=== PATIENT | male | born 1935 | race Caucasian/White ===

== ENCOUNTER 2016-10-20 08:05 | Day surgery (SDC) | payer MEDICARE ==
[2016-10-20 08:57] LABS: Basophils % (Auto) 1.1 % (0.0-1.8); Eosinophils % (Auto) 6.8 % (0.0-4.3); Hematocrit 41.8 % (30.3-42.9); Hemoglobin 13.7 gm/dl (10.1-14.3); Mean Corpuscular HGB Conc 33 % (30-34); Mean Corpuscular Hemoglobin 27 pg (28-32); Mean Corpuscular Volume 83 fl (79-97); Platelet Count 192 K/mm3 (140-440); Red Blood Count 5.02 M/mm3 (3.65-5.03); Red Cell Distribution Width 15.8 % (13.2-15.2); White Blood Count 5.8 K/mm3 (4.5-11.0)
[2016-10-20] MEDS ORDERED: ECOTRIN PO ONE (09:00)
[2016-10-20] MEDS ORDERED: NACL 0.9% 500 ML 500 ML IV SCH (09:00)
[2016-10-20 09:07] LABS: BUN/Creatinine Ratio 15.45; Calcium 9.2 mg/dL (8.4-10.2); INR 1.01 (0.87-1.13)
[2016-10-20] MEDS ORDERED: HEPARIN/NS 5000 UNIT/500ML(CATH LAB) 1,500 ML IR ONE (10:39)
[2016-10-20] MEDS ORDERED: SUBLIMAZE ONE (10:40)
[2016-10-20] MEDS ORDERED: HEPARIN 10,000 UNITS/10 ML ONE (10:40)
[2016-10-20] MEDS ORDERED: VERSED ONE (10:40)
[2016-10-20] MEDS ORDERED: XYLOCAINE 2% INFILTRATI ONE (10:40)
--- NOTE | 2016-10-20 11:37 | Discharge Summary ---
Short Stay Discharge Plan Activity: advance as tolerated Weight Bearing Status: Partial Weight Bearing Diet: low fat, low cholesterol, low salt Wound: keep clean and dry Special Instructions: no heavy lifting (3 days) Follow up with: WENDI SAAVEDRA MD [Staff Physician] - 7 Days
[2016-10-20] MEDS ORDERED: NACL 0.9% 500 ML 500 ML ONE (11:56)
[2016-10-20] MEDS ORDERED: NACL 0.9% 1000 ML 1,000 ML IV SCH (12:00)
--- NOTE | 2016-10-20 14:03 | Cardiac Catherization Report ---
REASON FOR PROCEDURE: Progressive aortic stenosis, right and left heart catheterization was recommended. PROCEDURES: 1. Right and left heart catheterization. 2. Coronary angiography. 3. Left ventricle angiography. PROCEDURE: The patient was prepped and draped in a sterile fashion after informed consent. The right femoral artery and vein were entered using the Seldinger technique. A 6-Palauan sheath in the artery and an 8-Palau[place] sheath in the vein. [place]-Heather catheterization was advanced to the pulmonary artery position. A #4 right Jose was advanced in the left ventricle. Cardiac output was measured using the thermodilution method. Simultaneous right and left heart filling pressures were measured. The [place]-Heather catheter was removed. Left ventricular angiography was performed with a hand injection via the right Jose catheter. The right Jose was then withdrawn across the aortic valve and transaortic pressures were recorded. Simultaneous left and right coronary angiography was then performed. The catheters were then removed, sheath removed and hemostasis achieved using manual compression. The patient was returned to the postprocedure unit in stable condition. There were no complications. FINDINGS: HEMODYNAMICS: The mean right atrial pressure was 6. Right ventricular pressure 35/8. Pulmonary artery pressure 30/15. Mean pulmonary artery wedge pressure was 12. Left ventricular end-diastolic pressure was 15. Cardiac output was 4.26 liters per minute by thermodilution. The left ventricular systolic pressure was 170, ascending aortic pressure was 129/52. On pullback across the aortic valve, there was a [id number] gradient of 43 mmHg. The mean gradient across the aortic valve was 34.5 mmHg. The calculated aortic valve area using the Gorlin equation was 0.82 square cm. CORONARY ANGIOGRAPHY: The left main coronary artery was free of significant disease. A stent was visible in the mid left anterior descending artery. The stented segment was widely patent, no significant in-stent restenosis. Otherwise, mild luminal irregularities were noted in the remainder of the LAD and diagonal branches. The circumflex artery contained a long, irregular 50-60% stenosis of its proximal segment. This was followed by diffuse mild atherosclerosis of the rest of the circumflex and obtuse marginals. The right coronary artery was dominant. This vessel contained a patent stent in its proximal to mid segment. Outside the stented segment, close to the acute margin there was a 50% stenosis. Otherwise, mild irregularities were noted in the rest of the right coronary system. There was normal left ventricular systolic function, ejection fraction 60%. CONCLUSIONS: 1. Normal right and left heart filling pressures, mild pulmonary hypertension. 2. At least [id number] aortic stenosis, with aortic valve area 0.82 square cm. 3. Multivessel coronary artery disease. 4. Patent mid left anterior descending artery stent. 5. Patent proximal right coronary artery stent. 6. Otherwise, moderate to moderately severe disease of the proximal circumflex and mid right coronary artery outside the stented segments. 7. Normal left ventricular systolic function, ejection fraction 60%. RECOMMENDATIONS: Based on clinical findings, the patient will be recommended for CT surgical evaluation and consultation. [facility]# [id number] DOMINICK/BROOKS
[2016-10-20 15:56] VITALS: BP 121/68
== END 2016-10-20 16:43 | disposition home or self-care (01) ==
LOC: EDSEX 08:05 → CATHLABREC 08:05
PROVIDERS: ATTEND Internal Medicine Cardiovascular Disease
DX: I25.10 Atherosclerotic heart disease of native coronary artery without angina pectoris (principal); I35.0 Nonrheumatic aortic (valve) stenosis; I10 Essential (primary) hypertension; E78.5 Hyperlipidemia, unspecified; E03.9 Hypothyroidism, unspecified; Z87.891 Personal history of nicotine dependence; Z86.73 Personal history of transient ischemic attack (TIA), and cerebral infarction without residual deficits; Z98.890 Other specified postprocedural states; Z95.5 Presence of coronary angioplasty implant and graft; Z79.82 Long term (current) use of aspirin; Z79.899 Other long term (current) drug therapy
CPT/HCPCS: 36415; 80048; 85025; 85610; 85730; 93005; 93010; 93460; C1769; C1894; J1644; J2250; J3010; J7040; Q9967